=== PATIENT | female | born 1985 | race Asian ===

== ENCOUNTER 2018-02-03 04:35 | Emergency (ER) | payer OTHER ==
[~2018-02-03] VITALS: Ht 170.2 cm; Wt 70.3 kg
[2018-02-03 04:45] VITALS: BP_SYST 126
[2018-02-03] MEDS ORDERED: KETOROLAC TROMETHAMINE 30 MG VIAL IM ONE (05:15)
[2018-02-03 05:58] VITALS: BP_SYST 122
== END 2018-02-03 05:58 | disposition home or self-care (01) ==
LOC: SED 04:35
DX: S16.1XXA Strain of muscle, fascia and tendon at neck level, initial encounter (principal); S39.012A Strain of muscle, fascia and tendon of lower back, initial encounter; V89.2XXA Person injured in unspecified motor-vehicle accident, traffic, initial encounter; Y93.89 Activity, other specified; Y92.410 Unspecified street and highway as the place of occurrence of the external cause; Y99.8 Other external cause status
CPT/HCPCS: 72040; 72100; 96372; 99284; J1885